=== PATIENT | female | born 1990 | race Caucasian/White ===

== ENCOUNTER → 2016-08-26 | Outpatient (CLI) | payer BC, OTHER ==
[2016-08-26 09:51] LABS: CH 28.6; CHCM 32.6; HCT 35.9 % (34.0-46.0); HDW 2.63; HGB 11.4 gm/dL (11.4-16.0); MCH 28.1 pg (25.0-35.0); MCHC 31.8 g/dL (31.0-37.0); MCV 88.4 fL (80.0-100.0); Mean Platelet Volume 7.6; RBC 4.06 m/uL (3.80-5.40); RDW 13.5 % (11.5-15.5); WBC 9.9 k/uL (3.8-10.6)
== END | disposition home or self-care (01) ==
LOC: LABWHC1 08:20
PROVIDERS: ATTEND Obstetrics & Gynecology
DX: Z34.92 Encounter for supervision of normal pregnancy, unspecified, second trimester (principal); Z3A.00 Weeks of gestation of pregnancy not specified
CPT/HCPCS: 36415; 82950; 85027

== ENCOUNTER 2016-09-18 14:46 | Emergency (ER) | payer BC, OTHER ==
--- NOTE | 2016-09-18 15:43 | ED ---
General Adult HPI - General Chief complaint: Upper Respiratory Infection Stated complaint: Chest Pain/Coughing up blood Time Seen by Provider: 09/18/16 15:15 Source: patient, RN notes reviewed Mode of arrival: wheelchair Limitations: no limitations - History of Present Illness Initial comments: This is a 26-year-old female who is 7 months she presents to the emergency department because she has been coughing for the last day and a half. Patient states she has coughed up some positive sputum. Patient states there was a little blood yesterday and the sputum and there was a little blood today on one occasion. Patient states she is no more short of breath than she normally is. Patient states she has no chest pain. Patient states she feels warm but does not know if she has a temperature. I took the patient's oral temperature 99.2. Patient denied any abdominal pain patient denies any back pain. Patient denies any dysuria hematuria urinary frequency. Patient did come from [facility] and they took her urine and chest told her she had a urinary tract infection though she is asymptomatic and they told her that they just do it on everybody. She would like us to retest. Patient does not want any x-rays or CAT scans. - Related Data Home Medications Medication Instructions Recorded Confirmed Pnv with Ca,No.72/Iron/FA 1 tab PO DAILY 06/12/16 09/18/16 [ Plus Tablet] Previous Rx's Medication Instructions Recorded Azithromycin [Zithromax Tri-Robert] 500 mg PO DAILY #3 tab 09/18/16 Allergies Allergy/AdvReac Type Severity Reaction Status Date / Time latex Allergy Itching Verified 09/18/16 15:50 red dye Allergy Anaphylaxis Verified 09/18/16 15:50 Review of Systems ROS Statement: Those systems with pertinent positive or pertinent negative responses have been documented in the HPI. ROS Other: All systems not noted in ROS Statement are negative. Past Medical History Past Medical History: No Reported History History of Any Multi-Drug Resistant Organisms: None Reported Additional Past Surgical History / Comment(s): OVARIAN CYST SURGERY Past Psychological History: No Psychological Hx Reported Smoking Status: Former smoker Past Alcohol Use History: None Reported Past Drug Use History: None Reported General Exam - General Exam Comments Initial Comments: GENERAL: Patient is well-developed and well-nourished. Patient is nontoxic and well- hydrated and is in mild distress. ENT: Neck is soft and supple. No significant lymphadenopathy is noted. Oropharynx is clear. Moist mucous membranes. Neck has full range of motion without eliciting any pain. EYES: The sclera were anicteric and conjunctiva were pink and moist. Extraocular movements were intact and pupils were equal round and reactive to light. Eyelids were unremarkable. PULMONARY: Unlabored respirations. Good breath sounds bilaterally. No audible rales rhonchi or wheezing was noted. CARDIOVASCULAR: There is a regular rate and rhythm without any murmurs gallops or rubs. ABDOMEN: Patient has a gravid uterus SKIN: Skin is clear with no lesions or rashes and otherwise unremarkable. NEUROLOGIC: Patient is alert and oriented x3. Cranial nerves II through XII are grossly intact. Motor and sensory are also intact. Normal speech, volume and content. Symmetrical smile. MUSCULOSKELETAL: Normal extremities with adequate strength and full range of motion. No lower extremity swelling or edema. No calf tenderness. LYMPHATICS: No significant lymphadenopathy is noted PSYCHIATRIC: Normal psychiatric evaluation. Normal interpersonal interactions appears functionally intact in deals appropriately with others. No signs of depression. No signs of anxiety. Limitations: no limitations Course Vital Signs 09/18/16 09/18/16 15:15 15:37 Temperature 97.6 F Pulse Rate 106 H Respiratory 18 16 Rate Blood Pressure 134/69 O2 Sat by Pulse 98 Oximetry Medical Decision Making - Lab Data Lab Results 09/18/16 Range/Units 15:56 Urine Color Yellow Urine Appearance Cloudy H (Clear) Urine pH 6.5 (5.0-8.0) Ur Specific [place] 1.011 (1.001-1.035) Urine Protein Negative (Negative) Urine Glucose (UA) Negative (Negative) Urine Ketones 1+ H (Negative) Urine Blood Negative (Negative) Urine Nitrate Negative (Negative) Urine Bilirubin Negative (Negative) Urine Urobilinogen <2.0 (<2.0) mg/dL Ur Leukocyte Esterase Moderate H (Negative) Urine RBC <1 (0-5) /hpf Urine WBC 11 H (0-5) /hpf Ur Squamous Epith Cells 5 H (0-4) /hpf Urine Mucus Rare H (None) /hpf Disposition Clinical Impression: Bronchitis Disposition: HOME SELF-CARE Condition: Good Instructions: Acute Bronchitis (ED) Prescriptions: Azithromycin [Zithromax Tri-Robert] 500 mg PO DAILY #3 tab Referrals: None,Stated [Primary Care Provider] - 1-2 days Time of Disposition: 17:13
[2016-09-18 16:50] LABS: Appearance,Urine Cloudy (Clear); Bilirubin,Urine Negative (Negative); Glucose,Urine (UA) Negative (Negative); Ketones,Urine 1+ (Negative); Leukocyte Esterase,Urine Moderate (Negative); Mucus,Urine Rare /hpf; Nitrite,Urine Negative (Negative); PH, Urine 6.5 (5.0-8.0); Particle Count 5862; Protein,Urine Negative (Negative); RBC,Urine <1 /hpf (0-5); Specific Gravity,Urine 1.011 (1.001-1.035); Squamous Epithelial Cell,Urine 5 /hpf (0-4); UA Billing (MACRO vs. MICRO) MICRO; Urobilinogen,Urine <2.0 mg/dL (<2.0); WBC,Urine 11 /hpf (0-5)
[2016-09-18 17:25] VITALS: BP 109/59; PULSE 88; RESP 18; TEMP 97
== END 2016-09-18 17:24 | disposition home or self-care (01) ==
LOC: EC 14:46
DX: O99.513 Diseases of the respiratory system complicating pregnancy, third trimester (principal); J20.9 Acute bronchitis, unspecified; Z3A.28 28 weeks gestation of pregnancy; Z87.891 Personal history of nicotine dependence; Z79.899 Other long term (current) drug therapy; Z91.040 Latex allergy status; Z91.048 Other nonmedicinal substance allergy status
CPT/HCPCS: 81001; 99283

== ENCOUNTER → 2016-10-01 | Outpatient (CLI) | payer BC, OTHER ==
--- NOTE | 2016-10-01 12:38 | US ---
EXAMINATION TYPE: US OB anatomy transabd DATE OF EXAM: 10/01/2016 10:37 AM COMPARISON: NONE HISTORY: 26-year-old female LGA TECHNIQUE: Transabdominal (TA). Transvaginal scanning was performed for assessment of cervical lengt h. FINDINGS: EXAM MEASUREMENTS: GESTATIONAL AGE / DATING Physician Established: (31 weeks/1 days) EDC: 12/02/16 Dates by LMP: pt unsure Dates by First scan (performed on 06/12/2016): 31 weeks 1 day EDC: 12/02/2016 Dates by Current Scan for: (29 weeks/5 days +/- 2 weeks 1 day) EDC: 12/12/16 SURVEY IUP: Single PLACENTA: Posterior PREVIA: No previa GHAZAL: 8.5 cm (normal 7.87 - 26.39) CERVICAL LENGTH (transabdominal: norm > 3.0cm): 3.5 cm BIOMETRY PRESENTATION: Vertex BPD: 7.6 cm 30 weeks / 5 days HC: 27.9 cm 30 weeks / 4 days AC: 25.5 cm 29 weeks / 5 days FL: 5.6 cm 29 weeks / 4 days ESTIMATED WEIGHT IN GRAMS: 1458 grams ESTIMATED WEIGHT IN LBS/OZS: 3 lbs. 3 oz. WEIGHT PERCENTAGE BASED ON ESTABLISHED DATE: 7 % (versus 38% on 06/12/16) HC/AC: 1.1 FL/AC: 22.1 HEART RATE: 143 bpm RHYTHM: Normal ANATOMY SEEN (within normal limits): Kidneys (bilateral) Three Vessel Cord ANATOMY THAT COULD BE REASSESSED AT FOLLOWUP Bladder - appears moderately distended. ANATOMY NOT SEEN: due to crowding/position/maternal size Lateral Vent Cisterna Magna Cerebellum Choroid Plexus (bilateral) Midline Falx Cavus Septi Pellucidi Nose / Lips Four Chamber Heart Outflow tracts: LVOT/RVOT Stomach Situs Longitudinal Spine Transverse Spine Arms (bilateral) Legs (bilateral) Diaphragm Cord Insert MATERNAL WALL MEASUREMENT: 3.5 cm from skin to anterior uterine wall (if exam limited due to body bush bitus). TECHNOLOGIST IMPRESSION: Measurement as above IMPRESSION: 1. Single live intrauterine with established gestational age of 31 weeks 1 day by previous dating scan (performed on 06/12/2016). Current ultrasound biometry places the child at 29 weeks 5 day s which is smaller but still concordant. 2. However, note that EFW has moved from the 30th percentile now down to the 7th percentile. 3. There is also borderline oligohydramnios with the GHAZAL measuring at the lower limits of normal (8.5 cm). 4. Moderate distention of the bladder though without any visualized pelvIcaliectasis. 5. Given these findings, close follow-up should be considered.
== END | disposition home or self-care (01) ==
LOC: RADUSWWP 09:55
PROVIDERS: ATTEND Obstetrics & Gynecology
DX: O36.63X0 Maternal care for excessive fetal growth, third trimester, not applicable or unspecified (principal); Z3A.31 31 weeks gestation of pregnancy
CPT/HCPCS: 76805; 76817

== ENCOUNTER → 2016-10-07 | Outpatient (CLI) | payer BC, OTHER ==
[2016-10-07 09:53] LABS: CH 27.3; CHCM 32.2; HDW 3.09; HGB 10.5 gm/dL (11.4-16.0); Hypochromasia Slight; MCH 27.9 pg (25.0-35.0); MCHC 32.8 g/dL (31.0-37.0); MCV 85.2 fL (80.0-100.0); Mean Platelet Volume 7.4; RBC 3.76 m/uL (3.80-5.40); RDW 13.2 % (11.5-15.5); WBC 6.2 k/uL (3.8-10.6)
[2016-10-07 12:00] LABS: Glucose 3 Hour, Gest 123 mg/dL
== END | disposition home or self-care (01) ==
LOC: LABWHC1 08:00
PROVIDERS: ATTEND Obstetrics & Gynecology
DX: O99.810 Abnormal glucose complicating pregnancy (principal); Z3A.00 Weeks of gestation of pregnancy not specified
CPT/HCPCS: 36415; 82951; 82952; 85027

== ENCOUNTER → 2016-10-28 | Outpatient (CLI) | payer BC, OTHER ==
[2016-10-28 15:05] LABS: Glucose 116 mg/dL (74-99); Non-African American GFR(MDRD) >60 (>60 ml/min/1.73 sqM)
[2016-10-28 15:37] LABS: Hepatitis B Surface Ag Index 0.05
[2016-10-29 11:30] LABS: Treponemal Ab Reactive (Non-Reactive)
[2016-10-30 07:32] LABS: HIV-1/HIV-2 Ab Screen NONREAC (NON REAC)
== END | disposition home or self-care (01) ==
LOC: LABWHC1 14:35
PROVIDERS: ATTEND Obstetrics & Gynecology
DX: Z34.83 Encounter for supervision of other normal pregnancy, third trimester (principal); Z3A.00 Weeks of gestation of pregnancy not specified
CPT/HCPCS: 36415; 82565; 82947; 86762; 86780; 86850; 86900; 86901; 87340; 87389

== ENCOUNTER 2016-11-08 16:03 | Outpatient (CLI) | payer BC, OTHER ==
[2016-11-08 17:15] VITALS: BP 133/80; PULSE 115; RESP 18; TEMP 96.6
--- NOTE | 2016-11-08 21:31 | P.MSEPDOC ---
Presenting Problems - Arrival Data Date of Arrival on Unit: 11/08/16 Time of Arrival on Unit: 16:03 Mode of Transport: Ambulatory - Complaint OB-Reason for Admission/Chief Complaint: Possible Onset of Labor Medical History - Information : 3 Para: 0 Term: 0 : 0 Abortions: Spontaneous or Elective: 2 Number of Living Children: 1 - Gestational Age Expected Date of Delivery: 12/05/16 Gestational Age by DERICK (wks/days): 36 Weeks and 1 Days Review of Systems - Review of Systems Constitutional: No problems Breast: No problems ENT: No problems Cardiovascular: No problems Respiratory: No problems Gastrointestinal: No problems Genitourinary: No problems Musculoskeletal: No problems Neurological: No problems Skin: No problems Vital Signs - Temperature Temperature: 96.6 F Temperature Source: Temporal Artery Scan - Pulse Right Brachial Pulse Rate: 115 Pulse Assessment Method: Automatic Cuff - Respirations Respiratory Rate: 18 Oxygen Delivery Method: Room Air O2 Sat by Pulse Oximetry: 98 - Blood Pressure Right Arm Blood Pressure: 133/80 Blood Pressure Mean: 97 Blood Pressure Source: Automatic Cuff Medical Screen Scoring (Pre) - Cervical Exam Dilation: 1-3 cm = 1 Membranes: Intact - Uterine Contractions Frequency: > 5 minutes apart = 1 Duration: N/A Intensity: N/A - Maternal Vital Signs Maternal Temperature: N/A Maternal Blood Pressure: N/A Signs of Preeclampsia: N/A Maternal Respirations: N/A - Maternal Trauma Maternal Trauma: N/A - Assessment Baseline FHR: 125 Heart Rate - NICHD Category: Category I (Normal) = 0 NST: Reactive Position: N/A Station: N/A - Total Score Total Score (Pre): 2 - Level of Risk Level of Risk: Low (0-5) Physician Notification (Pre) - Physician Notified Physician Notified Date: 11/08/16 Physician Notified Time: 16:55 Physician/Practitioner Notifed:: mary Spoke With: mary New Order Received: Yes - Notification Comment Comment: recheck cervix in one hour from first check. if no change discharge home Medical Screen Scoring (Post) - Cervical Exam Dilation: 1-3 cm = 1 - Uterine Contractions Frequency: N/A Duration: N/A Intensity: N/A - Maternal Vital Signs Maternal Temperature: N/A Maternal Blood Pressure: N/A Signs of Preeclampsia: N/A Maternal Respirations: N/A - Maternal Trauma Maternal Trauma: N/A - Assessment Heart Rate: 125 Heart Rate - NICHD Category: Category I (Normal) = 0 NST: Reactive Position: N/A - Total Score Total Score (Post): 1 - Post Treatment Level of Risk Post Treatment Level of Risk: Low (0-5) Physician Notification (Post) - Physician Notified Physician Notified Date: 11/08/16 Physician Notified Time: 17:24 Physician/Practitioner Notified:: mary Spoke With: mary New Order Received: Yes - Notification Comment Comment: discharge home Disposition - Disposition OB Disposition: Discharge to home Discharge Date: 11/08/16 Discharge Time: 17:42 I agree with the RN Medical Screening Exam: Yes Risk & Benefit of care provided described in d/c instruction: Yes Diagnosis: FALSE LABOR BEFORE 37 COMPLETED WEEKS OF GEST, THIRD TRI
== END 2016-11-08 17:43 | disposition home or self-care (01) ==
LOC: FBPOP 16:03
PROVIDERS: ATTEND Obstetrics & Gynecology
DX: O47.03 False labor before 37 completed weeks of gestation, third trimester (principal); Z3A.36 36 weeks gestation of pregnancy
CPT/HCPCS: 59025; 99213

== ENCOUNTER 2016-11-21 15:38 | Outpatient (CLI) | payer BC, OTHER ==
[2016-11-21 16:48] LABS: Amorphous Sediment,Urine Occasional /hpf; Appearance,Urine Cloudy (Clear); Bacteria,Urine Rare /hpf; Bilirubin,Urine Negative (Negative); Calcium Oxalate Crystals,Urine Moderate /hpf; Glucose,Urine (UA) Negative (Negative); Ketones,Urine Negative (Negative); Leukocyte Esterase,Urine Moderate (Negative); Mucus,Urine Few /hpf; Nitrite,Urine Negative (Negative); PH, Urine 6.5 (5.0-8.0); Particle Count 13134; Protein,Urine Trace (Negative); RBC,Urine 1 /hpf (0-5); Specific Gravity,Urine 1.017 (1.001-1.035); Squamous Epithelial Cell,Urine 10 /hpf (0-4); UA Billing (MACRO vs. MICRO) MICRO; Urobilinogen,Urine <2.0 mg/dL (<2.0); WBC,Urine 39 /hpf (0-5)
[2016-11-21 17:04] LABS: Basophils % (A) 0 %; CH 26.5; CHCM 31.9; Eosinophils # (A) 0.1 k/uL (0-0.7); Eosinophils % (A) 1 %; HCT 33.8 % (34.0-46.0); HDW 2.99; HGB 10.7 gm/dL (11.4-16.0); Hypochromasia Slight; Luc # (Auto) 0.21; Luc % (Auto) 2; Lymphocytes # (A) 1.3 k/uL (1.0-4.8); Lymphocytes % (A) 14 %; MCH 26.3 pg (25.0-35.0); MCHC 31.6 g/dL (31.0-37.0); MCV 83.3 fL (80.0-100.0); Mean Platelet Volume 8.3; Monocytes # (A) 0.6 k/uL (0-1.0); Monocytes % (A) 6 %; Neutrophils # (A) 7.1 k/uL (1.3-7.7); Neutrophils % (A) 76 %; RBC 4.06 m/uL (3.80-5.40); RDW 14.7 % (11.5-15.5); WBC 9.3 k/uL (3.8-10.6); WBC (Perox) 9.21
[2016-11-21 17:20] LABS: ALT 21 U/L (9-52); Blood Urea Nitrogen 5 mg/dL (7-17); LDH 356 U/L (313-618); Non-African American GFR(MDRD) >60 (>60 ml/min/1.73 sqM); Uric Acid 4.1 mg/dL (3.7-7.4)
== END 2016-11-21 18:02 | disposition home or self-care (01) ==
LOC: FBPOP 15:38
PROVIDERS: ATTEND Obstetrics & Gynecology
DX: O26.93 Pregnancy related conditions, unspecified, third trimester (principal); Z3A.38 38 weeks gestation of pregnancy
CPT/HCPCS: 81001; 82565; 83615; 84450; 84460; 84520; 84550; 85025

== ENCOUNTER 2016-11-24 18:38 | Outpatient (CLI) | payer BC, OTHER ==
[2016-11-24 19:51] VITALS: BP 127/82; PULSE 106; RESP 16; TEMP 96
--- NOTE | 2016-12-18 08:36 | P.MSEPDOC ---
Presenting Problems - Arrival Data Date of Arrival on Unit: 11/24/16 Time of Arrival on Unit: 18:38 Mode of Transport: Ambulatory - Complaint OB-Reason for Admission/Chief Complaint: NST Medical History - Information : 3 Para: 0 Term: 0 : 0 Abortions: Spontaneous or Elective: 2 Number of Living Children: 0 - Gestational Age Expected Date of Delivery: 12/05/16 Gestational Age by DERICK (wks/days): 41 Weeks and 6 Days Review of Systems - Review of Systems Constitutional: No problems Breast: No problems ENT: No problems Cardiovascular: No problems Respiratory: No problems Gastrointestinal: No problems Genitourinary: No problems Musculoskeletal: No problems Neurological: No problems Skin: No problems Vital Signs - Temperature Temperature: 96 F Temperature Source: Temporal Artery Scan - Pulse Pulse Oximetery Pulse Rate: 106 Pulse Assessment Method: Pulse Oximetry - Respirations Respiratory Rate: 16 Oxygen Delivery Method: Room Air - Blood Pressure Right Arm Blood Pressure: 127/82 Blood Pressure Mean: 97 Blood Pressure Source: Automatic Cuff Medical Screen Scoring (Pre) - Cervical Exam Dilation: Exam Deferred - Uterine Contractions Frequency: N/A Duration: N/A Intensity: N/A - Maternal Vital Signs Maternal Temperature: N/A Maternal Blood Pressure: N/A Signs of Preeclampsia: N/A Maternal Respirations: N/A - Maternal Trauma Maternal Trauma: N/A - Assessment Baseline FHR: 145 Heart Rate - NICHD Category: Category I (Normal) = 0 NST: Reactive Position: N/A Station: N/A - Total Score Total Score (Pre): 0 - Level of Risk Level of Risk: Low (0-5) Physician Notification (Pre) - Physician Notified Physician Notified Date: 11/24/16 Physician Notified Time: 19:05 Physician/Practitioner Notifed:: Dr Bush New Order Received: Yes - Notification Comment Comment: dc pt home Disposition - Disposition OB Disposition: Discharge to home, Written follow up instructions reviewed Discharge Date: 11/24/16 Discharge Time: 19:10 I agree with the RN Medical Screening Exam: Yes Risk & Benefit of care provided described in d/c instruction: Yes Diagnosis: RELATED CONDITIONS, UNSPECIFIED, THIRD TRIMESTER
== END 2016-11-24 19:10 | disposition home or self-care (01) ==
LOC: FBPOP 18:38
PROVIDERS: ATTEND Obstetrics & Gynecology
DX: O26.93 Pregnancy related conditions, unspecified, third trimester (principal); Z3A.41 41 weeks gestation of pregnancy
CPT/HCPCS: 99213

== ENCOUNTER 2016-11-28 06:00 | Inpatient (IN) | payer BC, OTHER ==
[2016-11-28] MEDS ORDERED: TERBUTALINE 1 MG/ML VIAL SQ PRN (06:21)
[2016-11-28] MEDS ORDERED: CARBOPROST TROMETHAMINE 250 MCG/ML 1 ML AMP IM PRN (06:21)
[2016-11-28] MEDS ORDERED: OXYTOCIN 10 UNIT/ML 1 ML VIAL IM PRN (06:21)
[2016-11-28] MEDS ORDERED: METHYLERGONOVINE 0.2 MG/ML 1 ML AMP IM PRN (06:21)
[2016-11-28] MEDS ORDERED: LIDOCAINE 1% (PF) 10 MG/ML (30 ML SDV) SQ PRN (06:21)
[2016-11-28] MEDS ORDERED: OXYTOCIN 20 UNITS/1000 ML NS 1,000 ML IV SCH (06:30)
[2016-11-28 06:33] VITALS: BMI 37.1
[2016-11-28 06:34] LABS: Basophils % (A) 0 %; CH 26.4; CHCM 32.4; Eosinophils # (A) 0.1 k/uL (0-0.7); Eosinophils % (A) 1 %; HCT 33.4 % (34.0-46.0); HDW 3.11; HGB 11.2 gm/dL (11.4-16.0); Hypochromasia Slight; Luc # (Auto) 0.19; Luc % (Auto) 2; Lymphocytes # (A) 1.8 k/uL (1.0-4.8); Lymphocytes % (A) 17 %; MCH 27.3 pg (25.0-35.0); MCHC 33.4 g/dL (31.0-37.0); MCV 81.6 fL (80.0-100.0); Mean Platelet Volume 7.3; Monocytes # (A) 0.6 k/uL (0-1.0); Monocytes % (A) 6 %; Neutrophils # (A) 7.4 k/uL (1.3-7.7); Neutrophils % (A) 73 %; RBC 4.09 m/uL (3.80-5.40); RDW 14.6 % (11.5-15.5); WBC 10.1 k/uL (3.8-10.6); WBC (Perox) 9.08
[2016-11-28] MEDS: LACTATED RINGERS 1,000 ML IV SCH ×3 (06:34→21:19)
[2016-11-28] MEDS ORDERED: BUTORPHANOL 1 MG/ML 1 ML VIAL IV PRN (10:15)
[2016-11-28] MEDS ORDERED: CITRIC ACID-SODIUM CITRATE 15 ML CUP PO ONE (22:31)
[2016-11-28] MEDS ORDERED: ceFAZolin 2 GM in SODIUM CHLORIDE 0.9% 100 ML IVPB ONE (22:31)
[2016-11-28] MEDS ORDERED: ceFAZolin 1,000 MG VIAL ONE (22:36)
[2016-11-28] MEDS ORDERED: fentaNYL (PF) 50 MCG/ML 2 ML AMP ONE (22:36)
[2016-11-28] MEDS ORDERED: ONDANSETRON 4 MG/2 ML VIAL ONE (22:36)
[2016-11-28] MEDS ORDERED: MORPHINE SULFATE (PF) 0.3 MG/0.3 ML SYR ONE (22:36)
[2016-11-28] MEDS ORDERED: PHENYLEPHRINE-0.9% NACL SYG 1 MG/10 ML SYRINGE ONE (22:36)
[2016-11-28] MEDS ORDERED: KETOROLAC 30 MG/ML 1 ML VIAL ONE (22:36)
[2016-11-28] MEDS ORDERED: OXYTOCIN 10 UNIT/ML 1 ML VIAL ONE (22:36)
[2016-11-28] MEDS ORDERED: Acetaminophen-Codeine 300-30mg TAB PO PRN (23:17)
[2016-11-28] MEDS ORDERED: SIMETHICONE 80 MG CHEWABLE PO PRN (23:17)
[2016-11-28] MEDS ORDERED: MEASLES-MUMPS-RUBELLA VACC/PF 12,500 UNIT/0.5 ML VIAL SQ ONE (23:17)
[2016-11-28] MEDS ORDERED: ACETAMINOPHEN TAB 325 MG TAB PO PRN (23:17)
[2016-11-28] MEDS ORDERED: ONDANSETRON 4 MG/2 ML VIAL IVP PRN (23:17)
[2016-11-28] MEDS ORDERED: METOCLOPRAMIDE 5 MG/ML 2 ML VIAL IVP PRN (23:17)
[2016-11-28] MEDS ORDERED: diphenhydrAMINE 25 MG CAP PO PRN (23:17)
[2016-11-28] MEDS ORDERED: ZOLPIDEM 5 MG TAB PO PRN (23:17)
[2016-11-28] MEDS ORDERED: NALOXONE 0.4 MG/ML 1 ML VIAL IV PRN (23:17)
[2016-11-28] MEDS ORDERED: diphenhydrAMINE 50 MG/ML 1 ML VIAL IVP PRN ×2 (23:17)
[2016-11-28] MEDS ORDERED: diphenhydrAMINE 50 MG CAP PO PRN (23:17)
--- NOTE | 2016-11-28 23:23 | P.HPOB ---
History of Present Illness H&P Date: 11/28/16 Chief Complaint: Intrauterine at 39 weeks': Induction of labor Patient is a 26-year-old at 39 weeks gestation arise for induction of labor. Her course was, complicated by a failed one-hour Glucola screen however she did pass a 3 hour Glucola screen. At this time she is feeling well heart tones are in the 140s and are reactive and she is beginning to contract. Artificial rupture membranes was performed and clear fluid is noted. She's currently dilated to 1/2 cm and -2 station. She does not plan on doing anything for pain relief today area will plan Pitocin augmentation of labor. On physical exam vital signs are stable and she is afebrile. Heart regular, lungs clear, extremities without pain. Abdomen is soft with intermittent contractions at this time. Gravid uterus is noted. Assessment intrauterine at 39 weeks. Plan expect spontaneous vaginal delivery. Past Medical History Past Medical History: No Reported History History of Any Multi-Drug Resistant Organisms: None Reported Additional Past Surgical History / Comment(s): OVARIAN CYST SURGERY Past Anesthesia/Blood Transfusion Reactions: Postoperative Nausea & Vomiting ( PONV) Past Psychological History: No Psychological Hx Reported Smoking Status: Never smoker Past Alcohol Use History: None Reported Past Drug Use History: None Reported - Past Family History Sister(s) Family Medical History: No Reported History Medications and Allergies Home Medications Medication Instructions Recorded Confirmed Type Pnv with Ca,No.72/Iron/FA 1 tab PO DAILY 06/12/16 11/28/16 History [ Plus Tablet] Allergies Allergy/AdvReac Type Severity Reaction Status Date / Time latex Allergy Itching Verified 11/28/16 06:21 red dye Allergy Anaphylaxis Verified 11/28/16 06:21 Exam Osteopathic Statement: *. No significant issues noted on an osteopathic structural exam other than those noted in the History and Physical/Consult. - Vital Signs Vital signs: Vital Signs Temp Pulse Resp BP Pulse Ox 11/28/16 06:28 97.1 F L 121 H 15 129/97 98 Intake and Output 11/28/16 11/28/16 11/29/16 14:59 22:59 06:59 Intake Total 1200 Balance 1200 Intake: IV 1200 Lactated Ringers 1,000 ml 1200 @ 125 mls/hr IV .Q8H DARRYL Rx#:[id number] Results Result Diagrams: 11/28/16 06:22 Abnormal Lab Results - Last 24 Hours (Table) 11/28/16 Range/Units 06:22 Hgb 11.2 L (11.4-16.0) gm/dL Hct 33.4 L (34.0-46.0) %
--- NOTE | 2016-11-28 23:27 | P.OP ---
Date of Procedure: 11/28/16 Preoperative Diagnosis: Intrauterine at 39 weeks failure to descend Postoperative Diagnosis: Same with asynclitism Procedure(s) Performed: Primary low transverse section from Pfannenstiel Implants: Anesthesia: spinal Surgeon: João Bush Print Binding Worker #1: Millie Jamison Estimated Blood Loss (ml): 600 IV fluids (ml): 1,400 Urine output (ml): 100 Pathology: other (Placenta) Condition: stable Disposition: floor Indications for Procedure: Operative Findings: Patient dilated to basically rim and despite attempts to push through the rim she was unable to do it it was palpated to be left occiput transverse with a asynclitism and due to pain in inability to push due to same we moved towards a primary low transverse section. Risks and benefits were discussed. Following delivery the baby scores were 8 and 9 at one and 5 minutes respectfully and weight was 8 lbs. 3 oz. Description of Procedure: Patient was taken to the operating suite where a spinal anesthetic was found to be adequate. She was prepped and draped in the normal sterile fashion and placed in the dorsal supine position with leftward tilt. Initially a Pfannenstiel skin incision was made and this incision was carried through to the underlying layer of the fascia was second knife. Fascia was then nicked in the midline and this opening was extended laterally with Saucedo scissors. Superior and inferior aspect of this incision were then grasped tented up and bluntly and sharply dissected off the rectus muscles. Rectus muscles were then divided in the midline and sharp dissection through the peritoneum was made. This opening was then extended superiorly and inferiorly with good visualization of both bowel bladder. Bladder blade was then placed and the vesicouterine peritoneum was identified. This tissue was then entered sharply with Metzenbaum scissors and this opening was extended across face the uterus with metastases scissors and a bladder flap was digitally created. Once accomplished knife was then used to incise the uterus. Hemostat was then used to open this incision fully and it was extended bluntly. Head was then atraumatically delivered and mouth nares were bulb suctioned. Nuchal cord 1 was easily reduced an anterior posterior shoulders were delivered with gentle downward upper traction with fundal pressure. Once baby was delivered umbilical cord was clamped and cut in the usual fashion an nursery personnel was present to assume care. Placenta was then delivered intact and Pitocin was added to the IV. Uterus was then closed in 2 layers with 0 Vicryl suture. Once excellent hemostasis was obtained 3-0 Vicryl was used to reapproximate the bladder flap. Blood and debris was then suctioned from the posterior cul-de- sac and the uterus was reinserted into the abdomen. Peritoneal layer was then closed [place] suture actually layer was closed with 0 Vicryl suture one layer of 3-0 Vicryl was placed in the deep subcuticular tissues and the skin was then closed with 3-0 Vicryl on a Thomas needle. Sponge, lap, needle counts were all correct 2. Patient was then taken to the recovery room in stable and satisfactory condition.
[2016-11-29] MEDS: LACTATED RINGERS 1,000 ML IV SCH ×3 (03:40→22:05)
--- NOTE | 2016-11-29 07:57 | P.PNOBGPC ---
Subjective - Subjective Principal diagnosis: Postop day 1 Interval history: Patient is doing very well this morning postop day 1 from a section last night. She is able to ambulate and is voiding. She is tolerating a liquid diet we'll advance that this morning. All the questions are answered for her at this time. Vital signs are stable and she is afebrile. Heart regular, lungs clear, extremities without pain. Assessment postop day 1. Plan continue current care Patient reports: Reports appetite normal, Reports voiding normally, Reports pain well controlled, Reports ambulating normally : doing well Objective - Vital Signs Latest vital signs: Vital Signs Temp Pulse Resp BP Pulse Ox 11/29/16 07:41 98.2 F 90 16 121/72 11/29/16 04:00 98.1 F 98 16 120/67 98 11/29/16 01:22 97.8 F 104 H 16 123/59 96 11/29/16 00:52 98.6 F 106 H 16 124/64 11/29/16 00:22 94 16 107/58 97 11/29/16 00:07 101 H 16 108/57 97 11/28/16 23:52 97.7 F 103 H 16 105/58 97 11/28/16 23:37 97.3 F L 98 16 104/55 98 11/28/16 23:22 97.5 F L 114 H 16 90/52 97 Intake and Output 11/28/16 11/29/16 11/29/16 22:59 06:59 14:59 Intake Total 2250 Output Total 1000 Balance 1250 Intake: IV 1400 Intake, IV Titration 850 Amount Lactated Ringers 1,000 ml 250 @ 125 mls/hr IV .Q8H DARRYL Rx#:[id number] Oxytocin 20 Units/1000 ml 500 Ns 1,000 ml @ 1 MILLIUNIT/MIN 3 mls/hr IV .Q24H DARRYL Rx#:[id number] ceFAZolin 2 gm In Sodium 100 Chloride 0.9% 100 ml @ 100 mls/hr IVPB ONCE ONE Rx#:[id number] Output: Urine 400 Estimated Blood Loss 600 Other: Weight 104.326 kg - Exam Lungs: bilateral: normal Chest: Normal S1, Normal S2 Extremities: Present: normal Abdomen: Present: normal appearance, soft. Absent: distention, tenderness Incision: Present: normal, dry, intact Uterus: Present: normal, firm
[2016-11-29] MEDS: SENNOSIDES-DOCUSATE SODIUM 1 EACH TAB PO SCH ×2 (07:58→20:49)
[2016-11-29 08:05] LABS: Basophils % (A) 0 %; CH 26.8; CHCM 32.8; Eosinophils % (A) 0 %; HCT 31.7 % (34.0-46.0); HDW 2.96; HGB 10.6 gm/dL (11.4-16.0); Luc # (Auto) 0.21; Luc % (Auto) 1; Lymphocytes # (A) 1.3 k/uL (1.0-4.8); Lymphocytes % (A) 7 %; MCH 27.3 pg (25.0-35.0); MCHC 33.3 g/dL (31.0-37.0); Mean Platelet Volume 7.6; Monocytes % (A) 5 %; Neutrophils # (A) 16.4 k/uL (1.3-7.7); Neutrophils % (A) 87 %; RBC 3.87 m/uL (3.80-5.40); RDW 14.9 % (11.5-15.5); WBC 18.9 k/uL (3.8-10.6); WBC (Perox) 18.87
--- NOTE | 2016-11-29 10:53 | P.PN ---
Progress Note - Text Date: Time: Patient is status post . Patient seen this morning with VAS score of 2. c/o of pruritus, c/o nausea/vomiting, comfortable and doing well today.
[2016-11-29] MEDS: KETOROLAC 30 MG/ML 1 ML VIAL IVP PRN ×2 (16:37→22:58)
[2016-11-30] MEDS: LACTATED RINGERS 1,000 ML IV SCH (00:46)
[2016-11-30] MEDS: IBUPROFEN 600 MG TAB PO PRN ×2 (08:58→16:55)
[2016-11-30] MEDS: SENNOSIDES-DOCUSATE SODIUM 1 EACH TAB PO SCH ×2 (08:58→19:43)
--- NOTE | 2016-11-30 11:03 | P.PNOBGPC ---
Subjective - Subjective Principal diagnosis: Status post section postoperative day #2 Interval history: Patient is ambulating. She is breast-feeding. Lochia is decreasing. Pain is fairly well controlled with oral pain medications. She is passing some flatus but no bowel movement yet. Patient reports: Reports appetite normal, Reports voiding normally, Reports pain well controlled, Reports ambulating normally : doing well, nursing well Objective - Vital Signs Latest vital signs: Vital Signs Temp Pulse Resp BP Pulse Ox 11/30/16 08:00 98.2 F 97 20 133/71 98 11/30/16 00:00 98.8 F 108 H 16 123/82 97 11/29/16 20:00 98.1 F 106 H 16 112/85 98 11/29/16 16:00 98.4 F 112 H 16 123/75 11/29/16 12:00 98.1 F 92 16 122/68 Intake and Output 11/29/16 11/30/16 11/30/16 22:59 06:59 14:59 Output Total 600 Balance -600 Output: Urine 600 Other: # Voids 2 - Exam Extremities: Present: normal. Absent: tenderness Abdomen: Present: normal appearance, soft (Positive faint bowel sounds 4), distention (Slight), tenderness (Mild) Incision: Present: normal, dry, intact. Absent: erythematous Uterus: Present: normal, firm. Absent: tenderness Assessment and Plan (1) delivery delivered Narrative/Plan: Impression is status post delivery postoperative day #2. Plan is to continue with postoperative care today and anticipate discharged tomorrow. Current Visit: Yes Status: Acute Code(s): O82 - ENCOUNTER FOR DELIVERY WITHOUT INDICATION SNOMED Code(s): 754975324
[2016-11-30] MEDS: Acetaminophen-Codeine 300-30mg TAB PO PRN (22:36)
[2016-12-01] MEDS: IBUPROFEN 600 MG TAB PO PRN (08:29)
[2016-12-01] MEDS: SENNOSIDES-DOCUSATE SODIUM 1 EACH TAB PO SCH (08:29)
[2016-12-01 08:32] VITALS: BP 141/73; PULSE 94; RESP 18; TEMP 98.1
--- NOTE | 2016-12-01 11:32 | P.DS ---
Providers Date of admission: 11/28/16 06:09 Expected date of discharge: 12/01/16 Attending physician: João Bush Primary care physician: Stated None - Discharge Diagnosis(es) (1) delivery delivered Current Visit: Yes Status: Acute Hospital Course: Please see history and physical for details of patient's admission. She did end up requiring a primary section and delivered a viable male with scores of 8 at 1 minute and 9 at 5 minutes and infant weight of 8 lbs. 3 oz. Her postoperative course was essentially uncomplicated. She is passing flatus and bowel movement at this time. Lochia is decreasing. Pain is fairly well controlled with oral pain medications. She is still working on breast-feeding. Vital signs are stable. Abdomen is soft with positive bowel sounds 4. Fundus is firm and nontender. Incision is clean dry and intact with Steri-Strips in place. Extremities show negative Homans. Impression is status post primary section postoperative day #3. Plan is to discharge home today. Routine postoperative and instructions are given. Prescriptions are written per Dr. Bush. She is advised to follow up in the office in approximately 1 week for a postoperative check and in 6 weeks for a check. She is advised to call the office if she has any further questions or concerns prior to her appointment time. Procedures: Oxytocin induction of labor Primary low transverse section on 11/28/2016 Patient Condition at Discharge: Stable Plan - Discharge Summary New Discharge Prescriptions: Acetaminophen-Codeine 300-30mg [Tylenol #3] 1 tab PO Q4H PRN #30 tablet PRN Reason: Pain Ibuprofen [Motrin] 600 mg PO Q6HR PRN #30 tab PRN Reason: Pain Discharge Medication List Pnv with Ca,No.72/Iron/FA [ Plus Tablet] 1 tab PO DAILY 06/12/16 [ History] Acetaminophen-Codeine 300-30mg [Tylenol #3] 1 tab PO Q4H PRN #30 tablet [Rx] Ibuprofen [Motrin] 600 mg PO Q6HR PRN #30 tab 11/29/16 [Rx] Follow up Appointment(s)/Referral(s): João Bush DO [Doctor of Osteopathic Medicine] - 1 Week Activity/Diet/Wound Care/Special Instructions: No heavy lifting, limit stairs and driving, and pelvic rest. If any high temperatures, heavy bleeding, or severe pain call my office Discharge Disposition: HOME SELF-CARE
[2016-12-01] MEDS ORDERED: DIPH,PERTUS(ACELL)TETVAC-LF 0.5 ML VIAL IM ONE (11:57)
[2016-12-01] MEDS: Acetaminophen-Codeine 300-30mg TAB PO PRN (14:18)
== END 2016-12-01 14:15 | disposition home or self-care (01) | DRG 766 ==
LOC: 4FBP 06:09
PROVIDERS: ADMIT Obstetrics & Gynecology; ATTEND Obstetrics & Gynecology
PROC: 3E033VJ Introduction of Other Hormone into Peripheral Vein, Percutaneous Approach (ICD-10-PCS; 2016-11-28)
PROC: 10D00Z1 Extraction of Products of Conception, Low, Open Approach (ICD-10-PCS; principal; 2016-11-28 22:52)
DX: O32.4XX0 Maternal care for high head at term, not applicable or unspecified (principal); K92.9 Disease of digestive system, unspecified; O69.81X0 Labor and delivery complicated by cord around neck, without compression, not applicable or unspecified; O99.72 Diseases of the skin and subcutaneous tissue complicating childbirth; O99.62 Diseases of the digestive system complicating childbirth; L29.9 Pruritus, unspecified; R11.2 Nausea with vomiting, unspecified; Z37.0 Single live birth; Z3A.39 39 weeks gestation of pregnancy
CPT/HCPCS: 85025; 88307; 90471; 90715

== ENCOUNTER → 2019-06-16 | Outpatient (CLI) | payer BC ==
[2019-06-16 17:20] LABS: Basophils % (A) 0 %; Eosinophils # (A) 0.1 k/uL (0-0.7); Eosinophils % (A) 1 %; HCT 39.2 % (34.0-46.0); HGB 12.5 gm/dL (11.4-16.0); Lymphocytes % (A) 22 %; MCH 26.6 pg (25.0-35.0); MCHC 31.9 g/dL (31.0-37.0); MCV 83.4 fL (80.0-100.0); Mean Platelet Volume 6.6; Monocytes # (A) 0.5 k/uL (0-1.0); Monocytes % (A) 11 %; Neutrophils # (A) 2.7 k/uL (1.3-7.7); Neutrophils % (A) 63 %; Platelet Count 252 k/uL (150-450); RDW 12.4 % (11.5-15.5); WBC 4.3 k/uL (3.8-10.6)
[2019-06-16 17:46] LABS: ALT 26 U/L (9-52); AST 21 U/L (14-36); African American GFR (CKD) >90 (>60 ml/min/1.73 sqM); Albumin 3.9 g/dL (3.5-5.0); Albumin/Globulin Ratio 1.3; Alkaline Phosphatase 73 U/L (38-126); Amylase 32 U/L (30-110); Anion Gap 7 mmol/L; Blood Urea Nitrogen 13 mg/dL (7-17); Calcium 8.8 mg/dL (8.4-10.2); Carbon Dioxide 27 mmol/L (22-30); Chloride 107 mmol/L (98-107); Globulin 2.9 g/dL; Glucose 95 mg/dL (74-99); Non-African American GFR(CKD) >90 (>60 ml/min/1.73 sqM); Potassium 3.8 mmol/L (3.5-5.1); Sodium 141 mmol/L (137-145); Total Bilirubin 0.5 mg/dL (0.2-1.3); Total Protein 6.8 g/dL (6.3-8.2)
== END | disposition home or self-care (01) ==
LOC: LABWHC1 16:56
PROVIDERS: ATTEND Nurse Practitioner Family
DX: R19.7 Diarrhea, unspecified (principal); R10.819 Abdominal tenderness, unspecified site
CPT/HCPCS: 36415; 80053; 82150; 83690; 85025

== ENCOUNTER 2021-01-08 11:01 | Emergency (ER) | payer BC ==
[2021-01-08] MEDS ORDERED: FAMOTIDINE 20 MG/2 ML VIAL IV STA (12:34)
[2021-01-08] MEDS ORDERED: ONDANSETRON 4 MG/2 ML VIAL IVP STA (12:34)
[2021-01-08] MEDS ORDERED: SODIUM CHLORIDE 0.9% 1,000 ML IV ONE (12:34)
[2021-01-08 13:10] LABS: Appearance,Urine Cloudy (Clear); Bacteria,Urine Rare /hpf; Basophils % (A) 0 %; Bilirubin,Urine Negative (Negative); Blood,Urine Large (Negative); Color,Urine Light Red; Eosinophils # (A) 0.1 k/uL (0-0.7); Eosinophils % (A) 1 %; Glucose,Urine (UA) Negative (Negative); HCT 40.8 % (34.0-46.0); HGB 13.7 gm/dL (11.4-16.0); Ketones,Urine Negative (Negative); Leukocyte Esterase,Urine Large (Negative); Lymphocytes % (A) 13 %; MCH 27.6 pg (25.0-35.0); MCHC 33.5 g/dL (31.0-37.0); MCV 82.3 fL (80.0-100.0); Mean Platelet Volume 7.1; Monocytes # (A) 0.5 k/uL (0-1.0); Monocytes % (A) 6 %; Mucus,Urine Moderate /hpf; Neutrophils % (A) 79 %; Nitrite,Urine Negative (Negative); Platelet Count 290 k/uL (150-450); Protein,Urine 1+ (Negative); RBC 4.96 m/uL (3.80-5.40); RBC,Urine 68 /hpf (0-5); RDW 12.6 % (11.5-15.5); Specific Gravity,Urine 1.034 (1.001-1.035); Squamous Epithelial Cell,Urine 2 /hpf (0-4); Urobilinogen,Urine <2.0 mg/dL (<2.0); WBC 7.5 k/uL (3.8-10.6); WBC,Urine 108 /hpf (0-5)
[2021-01-08 13:15] LABS: ALT 12 U/L (4-34); AST 17 U/L (14-36); Acetaminophen <10.0 ug/mL; African American GFR (CKD) >90 (>60 ml/min/1.73 sqM); Albumin 4.1 g/dL (3.5-5.0); Alcohol <10 mg/dL; Alkaline Phosphatase 80 U/L (38-126); Anion Gap 8 mmol/L; Blood Urea Nitrogen 15 mg/dL (7-17); Calcium 9.5 mg/dL (8.4-10.2); Carbon Dioxide 25 mmol/L (22-30); Chloride 106 mmol/L (98-107); Glucose 107 mg/dL (74-99); Non-African American GFR(CKD) >90 (>60 ml/min/1.73 sqM); Potassium 4.4 mmol/L (3.5-5.1); Salicylate <1.0 mg/dL; Sodium 139 mmol/L (137-145); Total Bilirubin 0.2 mg/dL (0.2-1.3)
[2021-01-08 13:16] LABS: Amphetamine Screen,Urine Not Detected (NotDetected); Barbiturate Screen,Urine Not Detected (NotDetected); Benzodiazepines Screen,Urine Not Detected (NotDetected); Cocaine Screen,Urine Not Detected (NotDetected); Methadone Screen, Urine Not Detected (NotDetected); Opiate Screen,Urine Not Detected (NotDetected); Oxycodone Screen, Urine Not Detected (NotDetected); Phencyclidine Screen,Urine Not Detected (NotDetected); Tricyclic Antidepressant,Urine Not Detected (NotDetected); Urn Cannabinoid Scrn Not Detected (NotDetected)
--- NOTE | 2021-01-08 13:21 | CT ---
EXAMINATION TYPE: CT brain wo con DATE OF EXAM: 01/08/2021 COMPARISON: None HISTORY: 30-year-old female syncopal episode, possible seizure TECHNIQUE: Examination was done in axial plane without intravenous contrast. Coronal and sagittal r econstructions performed. CT DLP: 1025.4 mGycm Automated exposure control for dose reduction was used. FINDINGS: Prominent skull base artifact affecting the posterior cranial fossa and brainstem. Allowing for this limitation, there is no evidence of acute intracranial hemorrhage, acute ischemic changes, mass, mass-effect, or extra-axial fluid collection. There is no effacement of cerebral sulc i or basal subarachnoid cisterns. There is no hydrocephalus. There is no midline shift. Mckeon-white matter distinction is preserved. Visualized paranasal sinuses and mastoids are well pneumatized. Visualized orbits and globes appear i ntact. IMPRESSION: Prominent skull base artifact. No definite acute intracranial abnormality seen.
--- NOTE | 2021-01-08 13:27 | ED ---
General Adult HPI - General Chief complaint: Seizure Stated complaint: seizure Time Seen by Provider: 01/08/21 12:13 Source: patient Mode of arrival: ambulatory - History of Present Illness Initial comments: Patient is a 30-year-old female with no significant past medical history presents to emergency department complaining of possible seizure versus syncope at home. Patient states that between 5 and 6 and this morning, she felt lightheaded and somewhat "queasy." She decided to sit down on the floor and the next day she remembers is waking up. Per her cousin who witnessed the event at home, the patient laid down on her own and then close her eyes. She had an episode of urinary incontinence. She briefly bent and then extended both arms. There is no generalized tonic clonic movements per patient. She states she awoke it was a little confused but quickly realize she was on the floor. She then came to the ED for evaluation. She currently denies any chest pain, s hortness of breath, fevers, chills, cough. She states she did recently start fluoxetiine at home 3 days ago. She states that this has happened previously when she was younger but has been quite some time. She has never been diagnosed with seizures before and she was told she had fainting spells previously. She states she currently feels a little nauseous but is tolerating by mouth intake. She has no other acute complaints at this time. She denies any trauma to the head. Patient presents with a concern for possible seizure. - Related Data Home Medications Medication Instructions Recorded Confirmed FLUoxetine HCL [PROzac] 10 mg PO DAILY 01/08/21 01/08/21 Allergies Allergy/AdvReac Type Severity Reaction Status Date / Time latex Allergy Itching Verified 01/08/21 13:20 red dye Allergy Anaphylaxis Verified 01/08/21 13:20 Review of Systems ROS Statement: Those systems with pertinent positive or pertinent negative responses have been documented in the HPI. Review of Systems: CONST: Denies fever EYES: Denies blurry vision ENT: Denies nasal congestion C/V: Denies Chest pain RESP: Denies shortness of breath GI: Denies abdominal pain : Denies dysuria SKIN: Denies rash. MSK: Denies joint pain. NEURO: Denies headache ROS Other: All systems not noted in ROS Statement are negative. Past Medical History Past Medical History: Syncope History of Any Multi-Drug Resistant Organisms: None Reported Past Surgical History: Section Additional Past Surgical History / Comment(s): OVARIAN CYST SURGERY Past Anesthesia/Blood Transfusion Reactions: Postoperative Nausea & Vomiting ( PONV) Past Psychological History: Anxiety Smoking Status: Never smoker Past Alcohol Use History: Occasional Past Drug Use History: None Reported - Past Family History Sister(s) Family Medical History: No Reported History General Exam - General Exam Comments Initial Comments: General: Appears in no acute distress. HEAD: Normal with no signs of head trauma. EYES: PERRLA, EOMI, conjunctiva normal, no discharge. Pupils are 4 mm bilaterally and equally reactive. ENT: Hearing grossly intact, normal oropharynx. RESPIRATORY: Clear breath sounds bilaterally. No wheezes, rales, or rhonchi. C/V: Regular rate and rhythm. S1 and S2 auscultated, no edema, peripheral pulses 2+ and intact throughout ABD: Abdomen soft, nontender, nondistended. There is no guarding. There are no peritoneal signs. EXT: Normal range of motion, no obvious deformity SKIN: No rashes or lesions observed on exposed skin. NEURO: Alert and oriented 4. Cranial nerves II through XII are intact. No focal sensory strength deficits. Cerebellar function is intact as evident by intact finger to nose testing. NIH stroke scale is 0. GCS is 15. Course Vital Signs 01/08/21 01/08/21 11:05 14:19 Temperature 98 F 98.6 F Pulse Rate 94 81 Respiratory 18 16 Rate Blood Pressure 128/88 117/66 O2 Sat by Pulse 98 100 Oximetry Medical Decision Making - Medical Decision Making Based on the patient's presentation and physical exam, and concern for possible new onset seizure versus syncopal episode. Therefore we will obtain a screening EKG as well as basic laboratory studies to workup new-onset seizure. This also includes drug screen as well as CT head. Patient was in agreement with plan. She will be given IV Zofran, famotidine, 1 L fluid bolus. She'll be subsequently reevaluated. Seizure cautions were placed. Patient's laboratory studies are remarkable for negative test, a contaminated urine catch with large amount of blood but the patient is on her period currently. Urine drug screen and serum drug screen are negative. EKG is within normal limits. Glucose is normal. Patient's CT head shows no acute intracranial process. On reevaluation, patient is feeling improved. I do believe is safe for discharge home at this time. I advised not drive or operate heavy machinery until she follows up neurology. We'll also have her follow up with the GI clinic as she does have a history of early-onset colon cancer in the family and she requested follow-up. I also advised that she follow-up with her primary care doctor within the next 2-3 days. She was in agreement with plan. Patient be given a work note as she does work in a factory operating heavy machinery to be off of the week until she can follow up neurology. Patient will therefore be discharged home in improved condition. - Lab Data Result diagrams: 01/08/21 12:51 01/08/21 12:51 Lab Results 01/08/21 01/08/21 01/08/21 Range/Units 12:51 12:51 12:51 WBC 7.5 (3.8-10.6) k/uL RBC 4.96 (3.80-5.40) m/uL Hgb 13.7 (11.4-16.0) gm/dL Hct 40.8 (34.0-46.0) % MCV 82.3 (80.0-100.0) fL MCH 27.6 (25.0-35.0) pg MCHC 33.5 (31.0-37.0) g/dL RDW 12.6 (11.5-15.5) % Plt Count 290 (150-450) k/uL MPV 7.1 Neutrophils % 79 % Lymphocytes % 13 % Monocytes % 6 % Eosinophils % 1 % Basophils % 0 % Neutrophils # 6.0 (1.3-7.7) k/uL Lymphocytes # 1.0 (1.0-4.8) k/uL Monocytes # 0.5 (0-1.0) k/uL Eosinophils # 0.1 (0-0.7) k/uL Basophils # 0.0 (0-0.2) k/uL Sodium 139 (137-145) mmol/L Potassium 4.4 (3.5-5.1) mmol/L Chloride 106 (98-107) mmol/L Carbon Dioxide 25 (22-30) mmol/L Anion Gap 8 mmol/L BUN 15 (7-17) mg/dL Creatinine 0.68 (0.52-1.04) mg/dL Est GFR (CKD-EPI)AfAm >90 (>60 ml/min/1.73 sqM) Est GFR (CKD-EPI)NonAf >90 (>60 ml/min/1.73 sqM) Glucose 107 H (74-99) mg/dL Calcium 9.5 (8.4-10.2) mg/dL Magnesium 2.0 (1.6-2.3) mg/dL Total Bilirubin 0.2 (0.2-1.3) mg/dL AST 17 (14-36) U/L ALT 12 (4-34) U/L Alkaline Phosphatase 80 (38-126) U/L Total Protein 7.0 (6.3-8.2) g/dL Albumin 4.1 (3.5-5.0) g/dL HCG, Quant <2.4 mIU/mL Urine Color Light Red Urine Appearance Cloudy H (Clear) Urine pH 6.0 (5.0-8.0) Ur Specific [place] 1.034 (1.001-1.035) Urine Protein 1+ H (Negative) Urine Glucose (UA) Negative (Negative) Urine Ketones Negative (Negative) Urine Blood Large H (Negative) Urine Nitrite Negative (Negative) Urine Bilirubin Negative (Negative) Urine Urobilinogen <2.0 (<2.0) mg/dL Ur Leukocyte Esterase Large H (Negative) Urine RBC 68 H (0-5) /hpf Urine WBC 108 H (0-5) /hpf Ur Squamous Epith Cells 2 (0-4) /hpf Urine Bacteria Rare H (None) /hpf Urine Mucus Moderate H (None) /hpf Salicylates <1.0 mg/dL Urine Opiates Screen Not Detected (NotDetected) Ur Oxycodone Screen Not Detected (NotDetected) Urine Methadone Screen Not Detected (NotDetected) Ur Propoxyphene Screen Not Detected (NotDetected) Acetaminophen <10.0 ug/mL Ur Barbiturates Screen Not Detected (NotDetected) U Tricyclic Antidepress Not Detected (NotDetected) Ur Phencyclidine Scrn Not Detected (NotDetected) Ur Amphetamines Screen Not Detected (NotDetected) U Methamphetamines Scrn Not Detected (NotDetected) U Benzodiazepines Scrn Not Detected (NotDetected) Urine Cocaine Screen Not Detected (NotDetected) U Marijuana (THC) Screen Not Detected (NotDetected) Serum Alcohol <10 mg/dL - EKG Data -: EKG Interpreted by Me EKG Comments: 12-lead Electrocardiogram Interpretation Note EKG was reviewed and interpreted by myself. 12-lead ECG performed at 1119 is interpreted by me as revealing normal sinus rhythm at a rate of 88 beats per minute. Oley is normal. MA interval is 156. QRS ratio 76 seconds, QTC is 404 ms. There were no ST or T wave abnormalities to suggest myocardial ischemia or injury. R wave progression across the precordium was satisfactory. By my interpretation this EKG is non-diagnostic for acute ischemia. Disposition Clinical Impression: Syncope, New onset seizure Disposition: HOME SELF-CARE Instructions (If sedation given, give patient instructions): Seizure/Epilepsy Discharge Instructions & Follow-Up, New-Onset Seizure in Adults (ED) Is patient prescribed a controlled substance at d/c from ED?: No Referrals: Sydnee Joshi MD [Primary Care Provider] - 1-2 days David Ni MD [STAFF PHYSICIAN] - 1-2 days Curt Mccarthy MD [STAFF PHYSICIAN] - 1-2 days
[2021-01-08 13:32] LABS: HCG,Quantitative Serum <2.4 mIU/mL
[2021-01-08 14:19] VITALS: BP 117/66; PULSE 81; RESP 16; TEMP 98.6
== END 2021-01-08 15:09 | disposition home or self-care (01) ==
LOC: EC 11:01
DX: R56.9 Unspecified convulsions (principal); R55 Syncope and collapse; R11.0 Nausea; R42 Dizziness and giddiness; F41.9 Anxiety disorder, unspecified; Z91.040 Latex allergy status; Z79.899 Other long term (current) drug therapy
CPT/HCPCS: 36415; 93005; 80053; 83735; 85025; 81001; 84702; 80306; 80143; 80320; 80179; 70450; 99285; 96374; 96375; 96361 ×2; J2405

== ENCOUNTER → 2021-03-10 | Outpatient (CLI) | payer BC ==
--- NOTE | 2021-03-10 10:03 | MR ---
EXAMINATION TYPE: MR brain wo/w con DATE OF EXAM: 03/10/2021 COMPARISON: CT brain 01/08/2021 HISTORY: Seizures, no head injury. TECHNIQUE: Multiplanar, multisequence images of the brain and brainstem is performed without and with IV contras t, utilizing 10 mL intravenous Gadavist . FINDINGS: Diffusion weighted images demonstrate no evidence of a recent infarct or other diffusion ab normality. There is no extra-axial fluid collection or significant white matter signal abnormality, punctate focus along the external capsule, axial image 15 on the right shows increased signal on inve rsion recovery T2-weighted sequences is of questionable clinical significance. The ventricular syste m and cisternal spaces are normal in size and appearance. The brain volume is age appropriate. Midline structures demonstrate normal morphology. The craniocervical junction appears within normal limits. Post contrast images demonstrate no abnormal enhancement. The dural venous sinuses appear pa tent. The visualized sinuses are remarkable for some minimal inflammatory change in ethmoid air cells and right maxillary sinus and the globes are intact. IMPRESSION: Essentially normal brain MRI. Mild sinus disease. Punctate hyperintensity within the righ t frontal white matter as described
== END | disposition home or self-care (01) ==
LOC: RADMRIMAIN 07:52
PROVIDERS: ATTEND Psychiatry & Neurology Neurology
DX: R93.0 Abnormal findings on diagnostic imaging of skull and head, not elsewhere classified (principal)
CPT/HCPCS: 70553; A9585

== ENCOUNTER → 2021-08-16 | Outpatient (CLI) | payer BC ==
[2021-08-16 22:48] LABS: ALT 16 U/L (8-44); AST 14 U/L (13-35); African American GFR (CKD) 112.1 (60.0-200.0); Albumin 4.2 g/dL (3.8-4.9); Albumin/Globulin Ratio 1.52 (1.60-3.17); Alkaline Phosphatase 92 U/L (41-126); Amylase 32 U/L (23-121); BUN/Creat Ratio 11.69 Ratio (12.00-20.00); Blood Urea Nitrogen 9.5 mg/dL (9.0-27.0); Calcium 9.1 mg/dL (8.7-10.3); Carbon Dioxide 22.3 mmol/L (20.0-27.5); Chloride 105 mmol/L (96-109); Globulin 2.8 g/dL (1.6-3.3); Glucose 113 mg/dL (70-110); Non-African American GFR(CKD) 96.7 (60.0-200.0); Potassium 4.1 mmol/L (3.5-5.5); Sodium 140 mmol/L (135-145); Total Bilirubin <0.20 mg/dL (0.30-1.20); Total Protein 6.9 g/dL (6.2-8.2)
[2021-08-16 23:00] LABS: Basophils # (A) 0.04 X 10*3/uL (0.00-0.10); Basophils % (A) 0.6 %; Eosinophils # (A) 0.14 X 10*3/uL (0.04-0.35); Eosinophils % (A) 2.2 %; HCT 42.5 % (37.2-46.3); HGB 12.9 g/dL (12.0-15.0); Lymphocytes # (A) 1.79 X 10*3/uL (0.90-5.00); Lymphocytes % (A) 28.2 %; MCH 25.7 pg (27.0-32.0); MCHC 30.4 g/dL (32.0-37.0); MCV 84.7 fL (80.0-97.0); Mean Platelet Volume 10.3 fL (9.5-12.2); Monocytes # (A) 0.43 X 10*3/uL (0.20-1.00); Monocytes % (A) 6.8 %; Neutrophils # (A) 3.93 X 10*3/uL (1.80-7.70); Neutrophils % (A) 61.9 %; Platelet Count 351 X 10*3/uL (140-440); RBC 5.02 X 10*6/uL (4.10-5.20); RDW 13.4 % (11.5-14.5); WBC 6.35 X 10*3/uL (4.50-10.00)
== END | disposition home or self-care (01) ==
LOC: LABWHC1 16:03
PROVIDERS: ATTEND Nurse Practitioner Adult Health
DX: K21.9 Gastro-esophageal reflux disease without esophagitis (principal)
CPT/HCPCS: 36415; 80053; 82150; 82785; 85025

== ENCOUNTER 2023-02-10 06:24 | Emergency (ER) | payer BC, OTHER ==
[2023-02-10 06:53] LABS: Basophils % (A) 0 %; Eosinophils # (A) 0.1 k/uL (0-0.7); Eosinophils % (A) 1 %; HGB 12.9 gm/dL (11.4-16.0); Lymphocytes # (A) 2.2 k/uL (1.0-4.8); Lymphocytes % (A) 22 %; MCH 28.1 pg (25.0-35.0); MCHC 33.9 g/dL (31.0-37.0); MCV 82.8 fL (80.0-100.0); Mean Platelet Volume 7.3; Monocytes # (A) 0.5 k/uL (0-1.0); Monocytes % (A) 5 %; Neutrophils # (A) 7.1 k/uL (1.3-7.7); Neutrophils % (A) 71 %; Platelet Count 254 k/uL (150-450); RBC 4.59 m/uL (3.80-5.40); RDW 13.5 % (11.5-15.5)
[2023-02-10 07:10] LABS: ALT 20 U/L (4-34); AST 22 U/L (14-36); African American GFR (CKD) >90 (>60 ml/min/1.73 sqM); Albumin 4.1 g/dL (3.5-5.0); Alkaline Phosphatase 86 U/L (38-126); Anion Gap 11 mmol/L; Blood Urea Nitrogen 9 mg/dL (7-17); Calcium 8.9 mg/dL (8.4-10.2); Carbon Dioxide 20 mmol/L (22-30); Chloride 105 mmol/L (98-107); Glucose 117 mg/dL (74-99); Non-African American GFR(CKD) >90 (>60 ml/min/1.73 sqM); Potassium 4.2 mmol/L (3.5-5.1); Sodium 136 mmol/L (137-145); Total Bilirubin 0.6 mg/dL (0.2-1.3); Total Protein 7.5 g/dL (6.3-8.2)
--- NOTE | 2023-02-10 07:22 | ED ---
General Adult HPI - General Chief complaint: Vaginal Bleeding Stated complaint: Possible Miscarriage Time Seen by Provider: 02/10/23 06:36 Source: patient, RN notes reviewed Mode of arrival: ambulatory Limitations: no limitations - History of Present Illness Initial comments: 32-year-old female presents emergency Department chief complaint of vaginal ble eding early . Patient states that she is A2 currently 70 weeks . Patient states she has an appointment in 8 days with her DRUG AND ALCOHOL COUNSELLOR. Patient states she started having some mild lower abdominal discomfort states that she noticed some bright red blood when she wiped. Patient denies any clotting. Denies nausea vomiting diarrhea constipation no fevers chills. - Related Data Home Medications Medication Instructions Recorded Confirmed FLUoxetine HCL [PROzac] 10 mg PO DAILY 01/08/21 01/08/21 Allergies Allergy/AdvReac Type Severity Reaction Status Date / Time latex Allergy Itching Verified 02/10/23 06:35 red dye Allergy Anaphylaxis Verified 02/10/23 06:35 Review of Systems ROS Statement: Those systems with pertinent positive or pertinent negative responses have been documented in the HPI. ROS Other: All systems not noted in ROS Statement are negative. Past Medical History Past Medical History: Syncope Additional Past Medical History / Comment(s): Migraines, epilepsy History of Any Multi-Drug Resistant Organisms: None Reported Past Surgical History: Section Additional Past Surgical History / Comment(s): OVARIAN CYST SURGERY Past Anesthesia/Blood Transfusion Reactions: Postoperative Nausea & Vomiting (PONV) Past Psychological History: Anxiety Smoking Status: Never smoker Past Alcohol Use History: Occasional Past Drug Use History: None Reported - Past Family History Sister(s) Family Medical History: No Reported History General Exam Limitations: no limitations General appearance: alert, in no apparent distress Head exam: Present: atraumatic, normocephalic, normal inspection Eye exam: Present: normal appearance, PERRL, EOMI. Absent: scleral icterus, conjunctival injection, periorbital swelling ENT exam: Present: normal exam, normal oropharynx, mucous membranes moist Neck exam: Present: normal inspection, full ROM. Absent: tenderness, meningismus, lymphadenopathy Respiratory exam: Present: normal lung sounds bilaterally. Absent: respiratory distress, wheezes, rales, rhonchi, stridor Cardiovascular Exam: Present: regular rate, normal rhythm, normal heart sounds. Absent: systolic murmur, diastolic murmur, rubs, gallop, clicks GI/Abdominal exam: Present: soft, normal bowel sounds. Absent: distended, tenderness, guarding, rebound, rigid Course Vital Signs 02/10/23 06:31 Temperature 98.0 F Pulse Rate 90 Respiratory 18 Rate Blood Pressure 149/83 O2 Sat by Pulse 99 Oximetry Medical Decision Making - Medical Decision Making Was pt. sent in by a medical professional or institution ([facility], MACHINE FILLER, urgent care, hospital, or usp...) When possible be specific @ -No Did you speak to anyone other than the patient for history (EMS, parent, family, police, friend...)? What history was obtained from this source @ -No Did you review nursing and triage notes (agree or disagree)? Why? @ -I reviewed and agree with nursing and triage notes Were old charts reviewed (outside hosp., previous admission, EMS record, old EKG, old radiological studies, urgent care reports/EKG's, usp records)? Report findings @ -No old charts were reviewed Differential Diagnosis (chest pain, altered mental status, abdominal pain women, abdominal pain men, vaginal bleeding, weakness, fever, dyspnea, syncope, headache, dizziness, GI bleed, back pain, seizure, CVA, palpatations, mental health, musculoskeletal)? @ -Subchorionic hemorrhage, miscarriage, miscarriage, UTI, EKG interpreted by me (3pts min.). @ -None X-rays interpreted by me (1pt min.). @ -None done CT interpreted by me (1pt min.). @ -None done U/S interpret all ed by me (1pt. min.). @ -Ultrasound shows cystic structure within the uterus, probable early noted What testing was considered but not performed or refused? (CT, X-rays, U/S, labs)? Why? @ -None What meds were considered but not given or refused? Why? @ -None Did you discuss the management of the patient with other professionals (professionals i.e. EV[facility] Cordova, MACHINE FILLER, lab, RT, psych nurse, social work nurse, manufacturing associate, teacher, collections officer, case maker)? Give summary @ -No Was smoking cessation discussed for >3mins.? @ -No Was critical care preformed (if so, how long)? @ -No Were there social determinants of health that impacted care today? How? (Homelessness, low income, unemployed, alcoholism, drug addiction, transportation, low edu. Level, literacy, decrease access to med. care, senior care, rehab)? @ -No Was there de-escalation of care discussed even if they declined (Discuss DNR or withdrawal of care, Hospice)? DNR status @ -No What co-morbidities impacted this encounter? (DM, HTN, Smoking, COPD, CAD, Cancer, CVA, ARF, Chemo, Hep., AIDS, mental health diagnosis, sleep apnea, morbid obesity)? @ -None Was patient admitted / discharged? Hospital course, mention meds given and route, prescriptions, significant lab abnormalities, going to OR and other pertinent info. @ -Discharge patient has a positive blood type patient onto a is unremarkable patient's hCG is 10,000 SHOWS PROBABLE EARLY VERSUS MISCARRIAGE. Undiagnosed new problem with uncertain prognosis? @ -No Drug Therapy requiring intensive monitoring for toxicity (Heparin, Nitro, Insulin, Cardizem)? @ -No Were any procedures done? @ -No Diagnosis/symptom? @ -Vaginal bleeding early Acute, or Chronic, or Acute on Chronic? @ -Acute Uncomplicated (without systemic symptoms) or Complicated (systemic symptoms)? @ -Uncomplicated Side effects of treatment? @ -No Exacerbation, Progression, or Severe Exacerbation? @ -No Poses a threat to life or bodily function? How? (Chest pain, [place], [place], pneumonia, PE, COPD, DKA, ARF, appy, cholecystitis, CVA, Diverticulitis, Homicidal, Suicidal, threat to staff... and all critical care pts) @ -No - Lab Data Result diagrams: 02/10/23 06:47 02/10/23 06:47 Lab Results 02/10/23 02/10/23 Range/Units 06:47 06:47 WBC 10.0 (3.8-10.6) k/uL RBC 4.59 (3.80-5.40) m/uL Hgb 12.9 (11.4-16.0) gm/dL Hct 38.0 (34.0-46.0) % MCV 82.8 (80.0-100.0) fL MCH 28.1 (25.0-35.0) pg MCHC 33.9 (31.0-37.0) g/dL RDW 13.5 (11.5-15.5) % Plt Count 254 (150-450) k/uL MPV 7.3 Neutrophils % 71 % Lymphocytes % 22 % Monocytes % 5 % Eosinophils % 1 % Basophils % 0 % Neutrophils # 7.1 (1.3-7.7) k/uL Lymphocytes # 2.2 (1.0-4.8) k/uL Monocytes # 0.5 (0-1.0) k/uL Eosinophils # 0.1 (0-0.7) k/uL Basophils # 0.0 (0-0.2) k/uL Sodium 136 L (137-145) mmol/L Potassium 4.2 (3.5-5.1) mmol/L Chloride 105 (98-107) mmol/L Carbon Dioxide 20 L (22-30) mmol/L Anion Gap 11 mmol/L BUN 9 (7-17) mg/dL Creatinine 0.67 (0.52-1.04) mg/dL Est GFR (CKD-EPI)AfAm >90 (>60 ml/min/1.73 sqM) Est GFR (CKD-EPI)NonAf >90 (>60 ml/min/1.73 sqM) Glucose 117 H (74-99) mg/dL Calcium 8.9 (8.4-10.2) mg/dL Total Bilirubin 0.6 (0.2-1.3) mg/dL AST 22 (14-36) U/L ALT 20 (4-34) U/L Alkaline Phosphatase 86 (38-126) U/L Total Protein 7.5 (6.3-8.2) g/dL Albumin 4.1 (3.5-5.0) g/dL HCG, Quant 28663.9 mIU/mL Disposition Clinical Impression: Bleeding in early Disposition: HOME SELF-CARE Condition: Stable Instructions (If sedation given, give patient instructions): Threatened Miscarriage (ED) Additional Instructions: Please return to the Emergency Department if symptoms worsen or any other concerns. Is patient prescribed a controlled substance at d/c from ED?: No Referrals: Tyshawn Larsen MD [Primary Care Provider] - 1-2 days Devante Hogan MD [STAFF PHYSICIAN] - 1-2 days Time of Disposition: 08:29
[2023-02-10 07:26] LABS: HCG,Quantitative Serum 10002.9 mIU/mL
--- NOTE | 2023-02-10 07:56 | US ---
EXAMINATION TYPE: Transabdominal DATE OF EXAM: 02/10/2023 7:29 AM COMPARISON: OB 2017, no prior us for this . CLINICAL INDICATION: Female, 32 years old with history of pain; Discomfort, minimal spotting. Surgery for ovarian cyst on the right, patient is unsure if she had her right ovary removed or not. Hx 2 mis carriages. . EXAM PERFORMED: Transvaginal (TV) and Transabdominal (TA) EXAM MEASUREMENTS: GESTATIONAL AGE / DATING Physician Established: Not yet established Dates by LMP: (7 weeks/0 days) EDC: 09/29/2023 Dates by First Scan: This is first scan Dates by Current Scan for: (5 weeks/3 days) EDC: 10/10/2023 MATERNAL ANATOMY Uterus: 11.4 x 6.1 x 4.6 cm. Right Ovary: Not seen, limited history from patient. Left Ovary: 3.7 x 1.4 x 1.7 cm. Post CDS / Adnexa: Appear wnl Presence of free fluid: No Presence of corpus luteal cyst: Not seen. Presence of subchorionic bleed: Not seen. GESTATION / SURVEY CRL: Not seen at this time, too early possibly MSD: 1.25 cm. (5 weeks/3 days) Yolk Sac (normal less than 6mm): Not seen at this time. Heart Rate: pole not yet seen. Rhythm: Normal IUP: Viable IUP Date of LMP: 12/23/2022 Beta HcG (if available): Not available IMPRESSION: Small anechoic intrauterine cystic structure without evidence for yolk sac or pole at this time . This is thought to represent an early gestational sac with a positive beta hCG, however ectopic pre gnancy and abnormal intrauterine cannot be ruled out based on this exam alone. [facility] pelvic ultrasound in 7-10 days and serial beta-hCG studies are recommended to en sure further deve lopment of the fetus.
[2023-02-10 08:30] LABS: Appearance,Urine Clear (Clear); Bilirubin,Urine Negative (Negative); Color,Urine Yellow; Glucose,Urine (UA) Negative (Negative); Ketones,Urine Negative (Negative); PH, Urine 5.5 (5.0-8.0); Protein,Urine Negative (Negative); Specific Gravity,Urine >1.030 (1.001-1.035)
[2023-02-10 08:31] LABS: Blood,Urine Small (Negative); Leukocyte Esterase,Urine Negative (Negative); Nitrite,Urine Negative (Negative); Urobilinogen,Urine <0.2 mg/dL (<2.0)
[2023-02-10 08:43] VITALS: BP 116/68; PULSE 84; RESP 16; TEMP 98.1
[2023-02-10 08:50] LABS: RBC,Urine 2 /hpf (0-5); Squamous Epithelial Cell,Urine 5 /hpf (0-4); WBC,Urine 2 /hpf (0-5)
[2023-02-10 09:04] LABS: Mucus,Urine Few /hpf
== END 2023-02-10 08:43 | disposition home or self-care (01) ==
LOC: EC 06:24
DX: O20.9 Hemorrhage in early pregnancy, unspecified (principal); O99.341 Other mental disorders complicating pregnancy, first trimester; F41.9 Anxiety disorder, unspecified; Z91.040 Latex allergy status; Z91.048 Other nonmedicinal substance allergy status; Z3A.01 Less than 8 weeks gestation of pregnancy
CPT/HCPCS: 36415; 76801; 76817; 80053; 81001; 84702; 85025; 99284

== ENCOUNTER 2023-02-18 01:11 | Emergency (ER) | payer BC, OTHER ==
[2023-02-18 01:19] VITALS: PULSE 84; RESP 18; TEMP 99.5
[2023-02-18] MEDS ORDERED: ACETAMINOPHEN TAB 500 MG TAB PO STA (01:26)
--- NOTE | 2023-02-18 01:34 | ED ---
Female Urogenital HPI - General Chief complaint: Vaginal Bleeding Stated complaint: - bleeding Time Seen by Provider: 02/18/23 01:20 Source: patient, RN notes reviewed Mode of arrival: ambulatory Limitations: no limitations - History of Present Illness Initial comments: This is a 32-year-old female who presents to the emergency department for vag inal bleeding in . Patient is . Unsure how far along she is. She was evaluated here about a week ago, but only had light spotting at that time. About an hour prior to arrival, states that she went to the bathroom and had much more bleeding than before. Also reports pelvic cramping. Denies any nausea or vomiting. She has her first appointment with Dr. Hogan, [facility] tomorrow, 02/19. Denies any fevers, chills, sore throat, cough, dyspnea, chest pain, palpitations, nausea, vomiting, diarrhea, back pain, or headaches. MD Complaint: vaginal bleeding - Related Data Home Medications Medication Instructions Recorded Confirmed FLUoxetine HCL [PROzac] 10 mg PO DAILY 01/08/21 01/08/21 Allergies Allergy/AdvReac Type Severity Reaction Status Date / Time latex Allergy Itching Verified 02/18/23 01:19 red dye Allergy Anaphylaxis Verified 02/18/23 01:19 Review of Systems ROS Statement: Those systems with pertinent positive or pertinent negative responses have been documented in the HPI. ROS Other: All systems not noted in ROS Statement are negative. Past Medical History Past Medical History: Syncope Additional Past Medical History / Comment(s): Migraines, epilepsy History of Any Multi-Drug Resistant Organisms: None Reported Past Surgical History: Section Additional Past Surgical History / Comment(s): OVARIAN CYST SURGERY Past Anesthesia/Blood Transfusion Reactions: Postoperative Nausea & Vomiting (PONV) Past Psychological History: Anxiety Smoking Status: Never smoker Past Alcohol Use History: Occasional Past Drug Use History: None Reported - Past Family History Sister(s) Family Medical History: No Reported History General Exam Limitations: no limitations General appearance: alert, in no apparent distress Head exam: Present: atraumatic, normocephalic, normal inspection Respiratory exam: Present: normal lung sounds bilaterally. Absent: respiratory distress, wheezes, rales, rhonchi, stridor Cardiovascular Exam: Present: regular rate, normal rhythm, normal heart sounds. Absent: systolic murmur, diastolic murmur, rubs, gallop, clicks Neurological exam: Present: alert, oriented X3, CN II-XII intact Psychiatric exam: Present: normal affect, normal mood Skin exam: Present: warm, dry, intact, normal color. Absent: rash Course Vital Signs 02/18/23 02/18/23 01:17 05:20 Temperature 99.5 F Pulse Rate 84 84 Respiratory 18 18 Rate Blood Pressure 118/64 124/85 O2 Sat by Pulse 99 98 Oximetry Medical Decision Making - Medical Decision Making This is a 32-year-old female who presents to the emergency department for vaginal bleeding in . Was pt. sent in by a medical professional or institution? @ -No Did you speak to anyone other than the patient for history? @ -No Did you review nursing and triage notes? @ -Yes, and I agree, it is accurate with regards to the patient's symptoms. Were old charts reviewed? @ -OB US from 02/10/23 which identified a small anechoic uterine structure without evidence for yolk sac or pole. HCG was 10,000 at that time. HCG obtained on 02/12 was 14,266. Differential Diagnosis? @ -Differential Vaginal Bleeding: Spontaneous , threatened , molar , ectopic , incompetent cervix, placenta previa, uterine rupture, dysfunctional uterine bleeding, hemorrhage, uterine fibroids, malignancy, coagulopathy, PID, cervicitis, adenomyosis, vaginal trauma, this is not meant to be an all- inclusive list. EKG interpreted by me (3pts min.)? @ -Not obtained X-rays interpreted by me (1pt min.)? @ -Not obtained CT interpreted by me (1pt min.)? @ -Not obtained U/S interpreted by me (1pt. min.)? @ -Not obtained What testing was considered but not performed? (CT, X-rays, U/S, labs)? Why? @ -None What meds were considered but not given? Why? @ -None Did you discuss the management of the patient with other professionals? @ -No Did you reconcile home meds? @ -No Was smoking cessation discussed for >3mins.? @ -No Was critical care preformed (if so, how long)? @ -No Were there social determinants of health that impacted care today? How? (Homelessness, low income, unemployed, alcoholism, drug addiction, transportation, low edu. Level, literacy, decrease access to med. care, longterm, rehab)? @ -No Was there de-escalation of care discussed even if they declined? (Discuss DNR or withdrawal of care, Hospice)? @ -No What co-morbidities impacted this encounter? (DM, HTN, Smoking, COPD, CAD, Cancer, CVA, Hep., AIDS, mental health diagnosis, sleep apnea, morbid obesity)? @ - Was patient admitted / discharged? @ -Discharged. Lab work obtained and found to be nonactionable. Beta hCG is 31,620. Which did double, however it doubled over the course of 6 days. Patient is RH positive and no RhoGAM is indicated. Tylenol administered for pain relief. Obstetrics ultrasound obtained revealing findings consistent with an incomplete . Findings reviewed with the patient who expresses und erstanding. Patient was given a lab slip to have beta hCG repeated in 48 hours. Otherwise instructed her to follow up with Dr. Hogan as scheduled for further evaluation and discussion of next steps moving forward. She'll continue taking Tylenol as needed for pain relief. Undiagnosed new problem with uncertain prognosis? @ -None Drug Therapy requiring intensive monitoring for toxicity (Heparin, Nitro, Insulin, Cardizem)? @ -None Were any procedures done? @ -None Diagnosis/symptom? @ -Incomplete Acute, or Chronic, or Acute on Chronic? @ -Acute Uncomplicated (without systemic symptoms) or Complicated (systemic symptoms)? @ -Uncomplicated Side effects of treatment? @ -None Exacerbation, Progression, or Severe Exacerbation] @ -Not applicable Poses a threat to life or bodily function? @ -Not at this time, however if the bleeding were to become severe, it could become a life threatening issue. Return precautions reviewed in depth, the patient is instructed to return to the emergency department with any new, worsening, or concerning symptoms. Patient verbalized understanding. This case was discussed in detail with the attending ED physician, Dr. Flores. Presentation, findings, and treatment plan discussed in detail as well. - Lab Data Result diagrams: 02/18/23 01:34 02/18/23 01:34 Lab Results 02/18/23 02/18/23 02/18/23 Range/Units 01:34 01:34 01:34 WBC 8.6 (3.8-10.6) k/uL RBC 4.53 (3.80-5.40) m/uL Hgb 12.4 (11.4-16.0) gm/dL Hct 37.7 (34.0-46.0) % MCV 83.3 (80.0-100.0) fL MCH 27.4 (25.0-35.0) pg MCHC 32.9 (31.0-37.0) g/dL RDW 13.3 (11.5-15.5) % Plt Count 274 (150-450) k/uL MPV 7.6 Neutrophils % 66 % Lymphocytes % 26 % Monocytes % 5 % Eosinophils % 2 % Basophils % 0 % Neutrophils # 5.7 (1.3-7.7) k/uL Lymphocytes # 2.2 (1.0-4.8) k/uL Monocytes # 0.4 (0-1.0) k/uL Eosinophils # 0.2 (0-0.7) k/uL Basophils # 0.0 (0-0.2) k/uL Sodium 135 L (137-145) mmol/L Potassium 4.0 (3.5-5.1) mmol/L Chloride 103 (98-107) mmol/L Carbon Dioxide 20 L (22-30) mmol/L Anion Gap 12 mmol/L BUN 11 (7-17) mg/dL Creatinine 0.61 (0.52-1.04) mg/dL Est GFR (CKD-EPI)AfAm >90 (>60 ml/min/1.73 sqM) Est GFR (CKD-EPI)NonAf >90 (>60 ml/min/1.73 sqM) Glucose 108 H (74-99) mg/dL Calcium 8.7 (8.4-10.2) mg/dL Total Bilirubin 0.4 (0.2-1.3) mg/dL AST 18 (14-36) U/L ALT 18 (4-34) U/L Alkaline Phosphatase 71 (38-126) U/L Total Protein 7.0 (6.3-8.2) g/dL Albumin 3.7 (3.5-5.0) g/dL HCG, Quant 07207.9 mIU/mL Urine Color Yellow Urine Appearance Cloudy H (Clear) Urine pH 5.5 (5.0-8.0) Ur Specific [place] 1.019 (1.001-1.035) Urine Protein Negative (Negative) Urine Glucose (UA) Negative (Negative) Urine Ketones Negative (Negative) Urine Blood Large H (Negative) Urine Nitrite Negative (Negative) Urine Bilirubin Negative (Negative) Urine Urobilinogen <2.0 (<2.0) mg/dL Ur Leukocyte Esterase Moderate H (Negative) Urine RBC 1 (0-5) /hpf Urine WBC 6 H (0-5) /hpf Ur Squamous Epith Cells 13 H (0-4) /hpf Urine Bacteria Rare H (None) /hpf Urine Mucus Occasional H (None) /hpf - Radiology Data Radiology results: report reviewed, image reviewed Disposition Clinical Impression: Incomplete Disposition: HOME SELF-CARE Instructions (If sedation given, give patient instructions): Miscarriage (ED) Additional Instructions: Return to the emergency department with any new, worsening, or concerning symptoms. Take the lab slip and have your hCG levels repeated in 48 hours. Follow up with your [facility]. Is patient prescribed a controlled substance at d/c from ED?: No Referrals: Catie Lafleur PAC [Primary Care Provider] - 1-2 days Devante Hogan MD [STAFF PHYSICIAN] - 1-2 days
[2023-02-18 01:48] LABS: Basophils % (A) 0 %; Eosinophils # (A) 0.2 k/uL (0-0.7); Eosinophils % (A) 2 %; HCT 37.7 % (34.0-46.0); HGB 12.4 gm/dL (11.4-16.0); Lymphocytes # (A) 2.2 k/uL (1.0-4.8); Lymphocytes % (A) 26 %; MCH 27.4 pg (25.0-35.0); MCHC 32.9 g/dL (31.0-37.0); MCV 83.3 fL (80.0-100.0); Mean Platelet Volume 7.6; Monocytes # (A) 0.4 k/uL (0-1.0); Monocytes % (A) 5 %; Neutrophils # (A) 5.7 k/uL (1.3-7.7); Neutrophils % (A) 66 %; Platelet Count 274 k/uL (150-450); RBC 4.53 m/uL (3.80-5.40); RDW 13.3 % (11.5-15.5); WBC 8.6 k/uL (3.8-10.6)
[2023-02-18 01:55] LABS: Appearance,Urine Cloudy (Clear); Bacteria,Urine Rare /hpf; Bilirubin,Urine Negative (Negative); Blood,Urine Large (Negative); Color,Urine Yellow; Glucose,Urine (UA) Negative (Negative); Ketones,Urine Negative (Negative); Leukocyte Esterase,Urine Moderate (Negative); Mucus,Urine Occasional /hpf; Nitrite,Urine Negative (Negative); PH, Urine 5.5 (5.0-8.0); Protein,Urine Negative (Negative); RBC,Urine 1 /hpf (0-5); Specific Gravity,Urine 1.019 (1.001-1.035); Squamous Epithelial Cell,Urine 13 /hpf (0-4); Urobilinogen,Urine <2.0 mg/dL (<2.0); WBC,Urine 6 /hpf (0-5)
[2023-02-18 02:03] LABS: ALT 18 U/L (4-34); AST 18 U/L (14-36); African American GFR (CKD) >90 (>60 ml/min/1.73 sqM); Albumin 3.7 g/dL (3.5-5.0); Alkaline Phosphatase 71 U/L (38-126); Anion Gap 12 mmol/L; Blood Urea Nitrogen 11 mg/dL (7-17); Calcium 8.7 mg/dL (8.4-10.2); Carbon Dioxide 20 mmol/L (22-30); Chloride 103 mmol/L (98-107); Glucose 108 mg/dL (74-99); Non-African American GFR(CKD) >90 (>60 ml/min/1.73 sqM); Sodium 135 mmol/L (137-145); Total Bilirubin 0.4 mg/dL (0.2-1.3)
[2023-02-18 02:55] LABS: HCG,Quantitative Serum 31620.9 mIU/mL
--- NOTE | 2023-02-18 05:08 | US ---
EXAM: US , Transvaginal CLINICAL HISTORY: ITS.REASON US Reason: Vaginal bleeding in TECHNIQUE: Real-time transvaginal obstetrical ultrasound of the maternal pelvis and a first trimester with image documentation. Transvaginal imaging was used for better evaluation of the fetus and adnexa. COMPARISON: No relevant prior studies available. FINDINGS: Gestation: Findings diagnostic of failure with no heart rate detected. Consider OB consultation. [place] rump length measures 7 mm corresponding to gestational age of 6 weeks 5 days. Placenta/amniotic fluid: Cannot be adequately evaluated due to the early gestational age. Uterus/cervix: Unremarkable. No myometrial mass. The uterus measures 10.1 x 4.3 x 6.3 cm. Ovaries: Unremarkable. No mass. The right ovary measures 2.7 x 2.0 x 1.9 cm. The left ovary measures 2.6 x 1.4 x 0.9 cm. Free fluid: No free fluid. IMPRESSION: 1. Findings diagnostic of failure with no heart rate detected. Consider OB consultation. 2. [place] rump length measures 7 mm corresponding to gestational age of 6 weeks 5 days.
[2023-02-18 05:21] VITALS: BP 124/85
== END 2023-02-18 05:21 | disposition home or self-care (01) ==
LOC: EC 01:11
DX: O03.4 Incomplete spontaneous abortion without complication (principal); Z86.59 Personal history of other mental and behavioral disorders; Z91.040 Latex allergy status; Z88.8 Allergy status to other drugs, medicaments and biological substances; Z3A.01 Less than 8 weeks gestation of pregnancy
CPT/HCPCS: 36415; 76801; 76817; 80053; 81001; 84702; 85025; 99284

== ENCOUNTER → 2024-01-06 | Outpatient (CLI) | payer BC, OTHER ==
--- NOTE | 2024-01-06 21:07 | MR ---
EXAMINATION TYPE: MR cervical spine wo con DATE OF EXAM: 01/06/2024 9:01 PM CLINICAL INDICATION:Female, 33 years old with history of M54.2 CERVICALGIA; PHH, Stiff neck and pain for 2 months, headaches COMPARISON: None. TECHNIQUE: Multi planar, multi sequence imaging was performed utilizing: T1-weighted, T2-weighted, an d turbo inversion recovery imaging of the cervical spine. IV Contrast: cc (none if empty) FINDINGS: Alignment: The cervical vertebral bodies have preserved heights. Alignment is within normal limits gi danielle patient positioning. Bones: Osteophytes and disc space narrowing most pronounced at the C5-C7 vertebral levels. Cord: The spinal cord is unremarkable with regards to their signal intensity and morphology. Discs: Intervertebral disc signal is maintained. C2-C3: No significant disc pathology. The spinal canal is patent. No neural foraminal stenosis. C3-C4: No significant disc pathology. The spinal canal is patent. No neural foraminal stenosis. C4-C5: No significant disc pathology. The spinal canal is patent. No neural foraminal stenosis. C5-C6: No significant disc pathology. The spinal canal is patent. No neural foraminal stenosis. C6-C7: No significant disc pathology. The spinal canal is patent. No neural foraminal stenosis. C7-T1: No significant disc pathology. The spinal canal is patent. No neural foraminal stenosis. Other: None. IMPRESSION: 1. No evidence for disc herniation or significant spinal canal stenosis. 2. Mild/minimal disc degeneration with associated osteoarthritic changes.
== END | disposition home or self-care (01) ==
LOC: RADMRIMAIN 21:00
PROVIDERS: ATTEND Family Medicine
DX: M50.30 Other cervical disc degeneration, unspecified cervical region (principal)
CPT/HCPCS: 72141